=== PATIENT | female | born 1980 ===

== ENCOUNTER 2020-01-12 20:50 | Emergency (ER) | payer OTHER ==
[2020-01-12] MEDS ORDERED: Sodium Chloride 0.9% 10 ML Syringe FLUSH PRN (20:57)
[2020-01-12] MEDS ORDERED: Phenytoin 1,500 MG in Sodium Chloride 0.9% 100 ML IV ONE (20:58)
[2020-01-12] MEDS ORDERED: Sodium Chloride 0.9% 1,000 ML IV ONE (20:59)
--- NOTE | 2020-01-12 21:08 | EDM.PDOC ---
ED HPI GENERAL MEDICAL PROBLEM - General Chief Complaint: Neuro Symptoms/Deficits Time Seen by Provider: 01/12/20 21:05 Source of Information: Reports: Patient, EMS, EMS Notes Reviewed, Family, RN, RN Notes Reviewed History Limitations: Reports: Altered Mental Status - History of Present Illness INITIAL COMMENTS - FREE TEXT/NARRATIVE: patient presents to ER per [facility] with complaint of seizure. Family called the ambulance as the patient had had a seizure at home that lasted an unknown amount of time. Patient was alert but very postictal when EMS arrived, was uncooperative when EMS attempted to touch the patient. EMS reports the patient had a seizure in their presence that lasted approximately 30 seconds while still in the home, and EMS did give him Versed 5 mg. EMS reported another 30 second seizure en route to the hospital. Family states the patient has a seizure disorder and takes Dilantin. Unknown any other past health history. Family denies any recent trauma per EMS. GCS: 7 Onset: Today, Sudden - Related Data Allergies Allergy/AdvReac Type Severity Reaction Status Date / Time Unable to Assess Allergy Unverified 01/12/20 21:00 Home Meds: Home Meds . [Unable to Verify Home Med List] 01/12/20 [History] ED ROS GENERAL - Review of Systems Review Of Systems: Comprehensive ROS is negative, except as noted in HPI. - Physical Exam Exam: See Below Exam Limited By: Altered Mental Status General Appearance: Obtunded, Other (snoring respirations) Eye Exam: Bilateral Eye: EOMI, Normal Inspection, PERRL (3 BRISk) Ears: Normal External Exam, Hearing Grossly Normal Nose: Normal Inspection Throat/Mouth: Normal Inspection, Normal Voice, No Airway Compromise Head Exam: Atraumatic, Normocephalic Neck: Normal Inspection, Supple, Non-Tender, Full Range of Motion Respiratory/Chest: No Respiratory Distress, Lungs Clear, Normal Breath Sounds, No Accessory Muscle Use, Chest Non-Tender Cardiovascular: Normal Peripheral Pulses, Regular Rate, Rhythm, No Edema, No Gallop, No JVD, No Murmur, No Rub GI/Abdominal: Normal Bowel Sounds, Soft, Non-Tender, No Organomegaly, No Distention, No Abnormal Bruit, No Mass (Female) Exam: Deferred Rectal (Female) Exam: Deferred Neuro Exam (Abbreviated): Confused, Disoriented Back Exam: Normal Inspection, Full Range of Motion, NT Extremities: Normal Inspection, Normal Range of Motion, Non-Tender, No Pedal Edema, Normal Capillary Refill Psychiatric: Flat Affect, Other (Patient sleeps with snoring respirations, easily arouses, but is combative when awake) Skin Exam: Warm, Dry, Intact, Normal Color, No Rash Course - Vital Signs Last Recorded V/S: Last Vital Signs Temp 97.5 F 01/12/20 21:03 Pulse 71 01/12/20 21:03 Resp 24 H 01/12/20 21:03 BP 115/72 01/12/20 21:03 Pulse Ox 98 01/12/20 21:03 - Orders/Labs/Meds Orders: Active Orders 24 hr Category Date Time Status Peripheral IV Care [RC] . DIRECTED Care 01/12/20 20:57 Active Head wo Cont [CT] Urgent Exams 01/12/20 21:32 Taken Sodium Chloride 0.9% [Normal Saline] 1,000 ml Med 01/12/20 23:30 Active IV ASDIRECTED Sodium Chloride 0.9% [Saline Flush] Med 01/12/20 20:57 Active 10 ml FLUSH ASDIRECTED PRN Peripheral IV Insertion Adult [OM.PC] Stat Oth 01/12/20 20:56 Ordered Seizure Precautions [OM.PC] Routine Oth 01/12/20 21:43 Ordered Medication Orders Sodium Chloride (Normal Saline) 1,000 mls @ 150 mls/hr IV ASDIRECTED THAD Last Admin: 01/12/20 23:26 Dose: 150 mls/hr Sodium Chloride (Saline Flush) 10 ml FLUSH ASDIRECTED PRN PRN Reason: Keep Vein Open Last Admin: 01/12/20 21:11 Dose: 10 ml Labs: Laboratory Tests 01/12/20 01/12/20 01/12/20 Range/Units 21:13 21:13 21:13 WBC 8.8 (5.0-10.0) 10^3/uL RBC 4.91 (4.2-5.4) 10^6/uL Hgb 13.4 (12.0-16.0) g/dL Hct 41.6 (37.0-47.0) % MCV 84.7 (80-100) fL MCH 27.3 (27.0-34.0) pg MCHC 32.2 L (33.0-35.0) g/dL Plt Count 255 (150-450) 10^3/uL Neut % (Auto) 76.4 H (42.2-75.2) % Lymph % (Auto) 13.2 L (20.5-50.1) % Lynn % (Auto) 8.8 H (2-8) % Eos % (Auto) 1.5 (1.0-3.0) % Baso % (Auto) 0.1 (0.0-1.0) % Sodium 141 (136-145) mmol/L Potassium 4.2 (3.5-5.1) mmol/L Chloride 104 (98-107) mmol/L Carbon Dioxide 27 (21-32) mmol/L Anion Gap 14.2 H (7-13) mEq/L BUN 11 (7-18) mg/dL Creatinine 0.92 (0.55-1.02) mg/dL Est Cr Clr Drug Dosing TNP Estimated GFR (MDRD) 54 BUN/Creatinine Ratio 12.0 (No establ ref range) Glucose 88 (74-99) mg/dL Calcium 8.7 (8.5-10.1) mg/dL Total Bilirubin 0.5 (0.2-1.0) mg/dL AST 20 (15-37) U/L ALT 30 (14-59) U/L Alkaline Phosphatase 81 (46-116) U/L Total Protein 7.8 (6.4-8.2) g/dL Albumin 3.5 (3.4-5.0) g/dL Globulin 4.3 Albumin/Globulin Ratio 0.8 Urine Color (YELLOW) Urine Appearance (CLEAR) Urine pH (5.0-9.0) Ur Specific [place] (1.005-1.030) Urine Protein (NEGATIVE) Urine Glucose (UA) (NEGATIVE) Urine Ketones (NEGATIVE) Urine Occult Blood (NEGATIVE) Urine Nitrite (NEGATIVE) Urine Bilirubin (NEGATIVE) Urine Urobilinogen (0.2-1.0) mg/dL Ur Leukocyte Esterase (NEGATIVE) Urine HCG, Qual Urine Opiates Screen (NEGATIVE) Ur Oxycodone Screen (NEGATIVE) Urine Methadone Screen (NEGATIVE) Ur Barbiturates Screen (NEGATIVE) Phenytoin < 1 L (10-20 (Therapeutic)) ug/mL U Tricyclic Antidepress (NEGATIVE) Ur Phencyclidine Scrn (NEGATIVE) Ur Amphetamine Screen (NEGATIVE) U Methamphetamines Scrn (NEGATIVE) Urine MDMA Screen (NEGATIVE) U Benzodiazepines Scrn (NEGATIVE) Urine Cocaine Screen (NEGATIVE) U Marijuana (THC) Screen (NEGATIVE) Ethyl Alcohol < 3 (0) mg/dL 01/12/20 01/12/20 01/12/20 Range/Units 23:14 23:14 23:14 WBC (5.0-10.0) 10^3/uL RBC (4.2-5.4) 10^6/uL Hgb (12.0-16.0) g/dL Hct (37.0-47.0) % MCV (80-100) fL MCH (27.0-34.0) pg MCHC (33.0-35.0) g/dL Plt Count (150-450) 10^3/uL Neut % (Auto) (42.2-75.2) % Lymph % (Auto) (20.5-50.1) % Lynn % (Auto) (2-8) % Eos % (Auto) (1.0-3.0) % Baso % (Auto) (0.0-1.0) % Sodium (136-145) mmol/L Potassium (3.5-5.1) mmol/L Chloride (98-107) mmol/L Carbon Dioxide (21-32) mmol/L Anion Gap (7-13) mEq/L BUN (7-18) mg/dL Creatinine (0.55-1.02) mg/dL Est Cr Clr Drug Dosing Estimated GFR (MDRD) BUN/Creatinine Ratio (No establ ref range) Glucose (74-99) mg/dL Calcium (8.5-10.1) mg/dL Total Bilirubin (0.2-1.0) mg/dL AST (15-37) U/L ALT (14-59) U/L Alkaline Phosphatase (46-116) U/L Total Protein (6.4-8.2) g/dL Albumin (3.4-5.0) g/dL Globulin Albumin/Globulin Ratio Urine Color Yellow (YELLOW) Urine Appearance Clear (CLEAR) Urine pH 6.5 (5.0-9.0) Ur Specific [place] 1.020 (1.005-1.030) Urine Protein Negative (NEGATIVE) Urine Glucose (UA) Negative (NEGATIVE) Urine Ketones Negative (NEGATIVE) Urine Occult Blood Negative (NEGATIVE) Urine Nitrite Negative (NEGATIVE) Urine Bilirubin Negative (NEGATIVE) Urine Urobilinogen 0.2 (0.2-1.0) mg/dL Ur Leukocyte Esterase Negative (NEGATIVE) Urine HCG, Qual Negative Urine Opiates Screen Negative (NEGATIVE) Ur Oxycodone Screen Negative (NEGATIVE) Urine Methadone Screen Negative (NEGATIVE) Ur Barbiturates Screen Negative (NEGATIVE) Phenytoin (10-20 (Therapeutic)) ug/mL U Tricyclic Antidepress Negative (NEGATIVE) Ur Phencyclidine Scrn Negative (NEGATIVE) Ur Amphetamine Screen Negative (NEGATIVE) U Methamphetamines Scrn Positive H (NEGATIVE) Urine MDMA Screen Negative (NEGATIVE) U Benzodiazepines Scrn Negative (NEGATIVE) Urine Cocaine Screen Negative (NEGATIVE) U Marijuana (THC) Screen Negative (NEGATIVE) Ethyl Alcohol (0) mg/dL Meds: Medications Generic Name Dose Route Start Last Admin Trade Name Freq PRN Reason Stop Dose Admin Sodium Chloride 1,000 mls @ 150 mls/hr 01/12/20 23:30 01/12/20 23:26 Normal Saline IV 150 mls/hr ASDIRECTED THAD Administration Sodium Chloride 10 ml 01/12/20 20:57 01/12/20 21:11 Saline Flush FLUSH 10 ml ASDIRECTED PRN Administration Keep Vein Open Discontinued Medications Generic Name Dose Route Start Last Admin Trade Name Freq PRN Reason Stop Dose Admin Phenytoin Sodium 1,500 mg/ 130 mls @ 260 mls/hr 01/12/20 20:58 01/12/20 21:10 Sodium Chloride IV 01/12/20 20:59 260 mls/hr ONETIME ONE Administration Sodium Chloride 1,000 mls @ 999 mls/hr 01/12/20 20:59 01/12/20 21:11 Normal Saline IV 01/12/20 21:59 999 mls/hr .BOLUS ONE Administration - Radiology Interpretation Free Text/Narrative:: Head CT wo contrast: PROCEDURE INFORMATION: Exam: CT Head Without Contrast Exam date and time: 01/12/2020 9:37 PM Age: 52 years (approx. age) old Clinical indication: Other: Seizure activity, unresponsive TECHNIQUE: Imaging protocol: Computed tomography of the head without contrast. Radiation optimization: All CT scans at this facility use at least one of these dose optimization techniques: automated exposure control; mA and/or kV adjustment per patient size (includes targeted exams where dose is matched to clinical indication); or iterative reconstruction. COMPARISON: No relevant prior studies available. FINDINGS: Brain: Mild hypodensity is present in the white matter of both frontal lobes. Mild hypodensity is present in the todd radiata of the left frontal lobe, consistent with changes due to old ischemic disease. No midline shift. Ventricles: Normal. No ventriculomegaly. Bones/joints: Unremarkable. No acute fracture. Sinuses: Visualized sinuses are unremarkable. No fluid levels. Mastoid air cells: Visualized mastoid air cells are well aerated. Soft tissues: Unremarkable. Other findings: No acute hemorrhage. IMPRESSION: Foci of mild hypodensity in the white matter of the frontal lobes. This finding is potentially due to changes of late subacute or early chronic infarction versus cerebritis. A component of acute on subacute or chronic disease is not excluded. Correlate with history and physical. Thank you for allowing us to participate in the care of your patient. Dictated and Authenticated by: Jaleel Thornton MD 01/12/2020 10:04 PM Central Time ([place] & [place]) See rad report - Re-Assessments/Exams Free Text/Narrative Re-Assessment/Exam: 01/12/20 23:26 Discussed patient case with Dr. Currie who agreed to accept the patient for transfer to [facility] in [place]. Departure - Departure Time of Disposition: 22:58 Disposition: DC/Tfer to [facility] 02 Condition: Serious Clinical Impression: Seizure - Discharge Information *PRESCRIPTION DRUG MONITORING PROGRAM REVIEWED*: No *COPY OF PRESCRIPTION DRUG MONITORING REPORT IN PATIENT DOUGLAS: No Forms: ED Department Discharge, Interfacility Transfer [facility] Sepsis Event Note - Evaluation Sepsis Screening Result: No Definite Risk - Focused Exam Vital Signs: Vital Signs Temp Pulse Resp BP Pulse Ox 01/12/20 21:03 97.5 F 71 24 H 115/72 98 Date Exam was Performed: 01/12/20 Time Exam was Performed: 23:26 - My Orders Last 24 Hours: My Active Orders 01/12/20 20:56 Peripheral IV Insertion Adult [OM.PC] Stat 01/12/20 20:57 Peripheral IV Care [RC] . DIRECTED Sodium Chloride 0.9% [Saline Flush] 10 ml FLUSH ASDIRECTED PRN 01/12/20 21:32 Head wo Cont [CT] Urgent 01/12/20 21:43 Seizure Precautions [OM.PC] Routine 01/12/20 23:30 Sodium Chloride 0.9% [Normal Saline] 1,000 ml IV ASDIRECTED - Assessment/Plan Last 24 Hours: My Active Orders 01/12/20 20:56 Peripheral IV Insertion Adult [OM.PC] Stat 01/12/20 20:57 Peripheral IV Care [RC] . DIRECTED Sodium Chloride 0.9% [Saline Flush] 10 ml FLUSH ASDIRECTED PRN 01/12/20 21:32 Head wo Cont [CT] Urgent 01/12/20 21:43 Seizure Precautions [OM.PC] Routine 01/12/20 23:30 Sodium Chloride 0.9% [Normal Saline] 1,000 ml IV ASDIRECTED
[2020-01-12 21:40] LABS: ANION GAP 14.2 mEq/L (7-13); CHLORIDE,CL 104 mmol/L (98-107); SODIUM,NA 141 mmol/L (136-145)
[2020-01-12] MEDS ORDERED: Sodium Chloride 0.9% 1,000 ML IV SCH (23:30)
== END 2020-01-12 23:31 ==
LOC: EDBD → DL.ED 20:50
DX: R56.9 Unspecified convulsions (principal)
CPT/HCPCS: 36415; 70450; 80053; 80185; 80305; 80307; 81003; 81025; 85025; 96365; 99284; 99285; J1165; J7030; J7050